=== PATIENT | male | born 1950 | race Caucasian/White ===

== ENCOUNTER 2019-11-17 10:29 | Day surgery (SDC) | payer MEDICARE ==
[~2019-11-17] VITALS: Ht 177.8 cm; Wt 100.3 kg
[2019-11-17] MEDS ORDERED: LACTATED RINGERS 1,000 ML IV STA (11:15)
[2019-11-17] MEDS ORDERED: CHLORHEXIDINE 15 ML UDC MM STA (11:15)
[2019-11-17 11:16] VITALS: BP 158/90
[2019-11-17] MEDS ORDERED: TAMS-11 PO (11:24)
[2019-11-17] MEDS ORDERED: LEVO150T PO (11:24)
[2019-11-17] MEDS ORDERED: ROSU10TA2 PO (11:24)
[2019-11-17] MEDS ORDERED: LOSA100T14 PO (11:24)
[2019-11-17] MEDS ORDERED: CHOL10003 PO (11:24)
[2019-11-17] MEDS ORDERED: CHLORHEXIDINE 15 ML UDC ONE (11:28)
[2019-11-17] MEDS ORDERED: DEXAMETHASONE 4 MG/ML, 1ML ONE (12:08)
[2019-11-17] MEDS ORDERED: LIDOCAINE-MPF 2% ,5ML ONE (12:08)
[2019-11-17] MEDS ORDERED: PROPOFOL 10 MG/ML, 20ML ONE (12:08)
[2019-11-17] MEDS ORDERED: GLYCOPYRROLATE 0.2MG/1ML, 5ML ONE (12:08)
[2019-11-17] MEDS ORDERED: ROCURONIUM 10MG/ML,5ML ONE (12:08)
[2019-11-17] MEDS ORDERED: MIDAZOLAM 1 MG/ML, 2ML ONE (12:08)
[2019-11-17] MEDS ORDERED: FENTANYL PF 100 MCG/2ML ONE (12:08)
[2019-11-17] MEDS ORDERED: EPHEDRINE 50 MG/ML, 1ML IVPush PRN (12:30)
[2019-11-17] MEDS ORDERED: ALBUTEROL/IPRATROPIUM 2.5MG/0.5MG, 3 ML NPPB PRN (12:30)
[2019-11-17] MEDS ORDERED: EPHEDRINE 50 MG/ML, 1ML IM PRN (12:30)
[2019-11-17] MEDS ORDERED: HYDROcodone/APAP 7.5-325MG/15ML UDC PO PRN (12:30)
[2019-11-17] MEDS ORDERED: MEPERIDINE/PF 25MG/0.5ML IVPush PRN (12:30)
[2019-11-17] MEDS ORDERED: GEMCITABINE HCL IS ONE (12:30)
[2019-11-17] MEDS ORDERED: hydrALAzine 20 MG/ML, 1ML IV PRN (12:30)
[2019-11-17] MEDS ORDERED: HYDROmorphone 1 MG/ML, 1ML INJ IVPush PRN (12:30)
[2019-11-17] MEDS ORDERED: OXYcodone 5 MG/5 ML ORAL.SOL UDC PO PRN (12:30)
[2019-11-17] MEDS ORDERED: ACETAMINOPHEN 325 MG TABLET PO PRN (12:30)
[2019-11-17] MEDS ORDERED: LORazepam 2 MG/ML, 1ML IVPush PRN (12:30)
[2019-11-17] MEDS ORDERED: MIDAZOLAM 1 MG/ML, 2ML IV PRN (12:30)
[2019-11-17] MEDS ORDERED: METHOCARBAMOL 1,000 MG in DEXTROSE 5% 100 ML IV PRN (12:30)
[2019-11-17] MEDS ORDERED: LABETALOL 5MG/ML, 20ML IV PRN (12:30)
[2019-11-17] MEDS ORDERED: METOCLOPRAMIDE 5 MG/ML, 2ML IVPush PRN (12:30)
[2019-11-17] MEDS ORDERED: DIPHENHYDRAMINE 50 MG/ML, 1ML IVPush PRN (12:30)
[2019-11-17] MEDS ORDERED: DIAZEPAM 5 MG/ML, 2ML IVPush PRN (12:30)
[2019-11-17] MEDS ORDERED: SODIUM CHLORIDE 0.9% IS ONE (12:30)
[2019-11-17] MEDS ORDERED: KETOROLAC 30 MG/1 ML IV PRN (12:30)
[2019-11-17] MEDS ORDERED: FENTANYL PF 100 MCG/2ML IV PRN (12:30)
[2019-11-17] MEDS ORDERED: ONDANSETRON 2MG/ML, 2ML IVPush PRN (12:30)
[2019-11-17] MEDS ORDERED: HALOPERIDOL 5 MG/ML IV PRN (12:30)
[2019-11-17] MEDS ORDERED: GENTAMICIN 80 MG/2 ML ONE (12:59)
[2019-11-17] MEDS ORDERED: LACTATED RINGERS 1,000 ML IV ONE (13:00)
== END 2019-11-17 17:20 | disposition home or self-care (01) ==
LOC: OUT 10:29
PROVIDERS: ATTEND Urology
DX: C67.9 Malignant neoplasm of bladder, unspecified (principal); Z11.59 Encounter for screening for other viral diseases; N40.1 Benign prostatic hyperplasia with lower urinary tract symptoms; N13.8 Other obstructive and reflux uropathy; I10 Essential (primary) hypertension; E03.9 Hypothyroidism, unspecified; Z79.02 Long term (current) use of antithrombotics/antiplatelets; Z79.890 Hormone replacement therapy; Z79.899 Other long term (current) drug therapy; Z87.442 Personal history of urinary calculi; Z88.0 Allergy status to penicillin; Z91.048 Other nonmedicinal substance allergy status; Z98.890 Other specified postprocedural states; Z82.49 Family history of ischemic heart disease and other diseases of the circulatory system; Z80.9 Family history of malignant neoplasm, unspecified
CPT/HCPCS: 36415; 52235; 87635; 88307; 93005; J1100; J1580; J2250; J2704; J3010; J7120; J9201

== ENCOUNTER 2020-09-11 14:57 | Day surgery (SDC) | payer MEDICARE ==
[~2020-09-11] VITALS: Ht 177.8 cm; Wt 98.6 kg
[~2020-09-11 14:57] MED LIST: CHOL10003 PO; LEVO150T PO; LOSA100T14 PO; ROSU10TA2 PO; TAMS-11 PO
[2020-09-11 15:21] VITALS: BP 158/95
[2020-09-11] MEDS ORDERED: CHLORHEXIDINE 15 ML UDC ONE (15:27)
[2020-09-11] MEDS ORDERED: CHLORHEXIDINE 15 ML UDC PO ONE (15:30)
[2020-09-11] MEDS ORDERED: LACTATED RINGERS 1,000 ML IV SCH (15:30)
[2020-09-11] MEDS ORDERED: OMNIPAQUE 350 MG/ML, 50 ML BOTTLE ONE (16:12)
[2020-09-11] MEDS ORDERED: ONDANSETRON 2MG/ML, 2ML ONE (16:26)
[2020-09-11] MEDS ORDERED: SUCCINYLCHOLINE 20 MG/ML, 10ML ONE (16:26)
[2020-09-11] MEDS ORDERED: ROCURONIUM 10 MG/ML,10ML ONE (16:26)
[2020-09-11] MEDS ORDERED: CEFAZOLIN 1,000 MG ONE (16:26)
[2020-09-11] MEDS ORDERED: DEXAMETHASONE 4 MG/ML, 1ML ONE (16:26)
[2020-09-11] MEDS ORDERED: PROPOFOL 10 MG/ML, 20ML ONE (16:26)
[2020-09-11] MEDS ORDERED: FENTANYL PF 250 MCG/5ML ONE (17:34)
[2020-09-11] MEDS ORDERED: hydrALAzine 20 MG/ML, 1ML IV PRN (18:00)
[2020-09-11] MEDS ORDERED: MEPERIDINE/PF 25MG/0.5ML IVPush PRN (18:00)
[2020-09-11] MEDS ORDERED: METHOCARBAMOL 1,000 MG in DEXTROSE 5% 100 ML IV PRN (18:00)
[2020-09-11] MEDS ORDERED: HYDROmorphone 1 MG/ML, 1ML INJ IVPush PRN (18:00)
[2020-09-11] MEDS ORDERED: LABETALOL 5MG/ML, 20ML IV PRN (18:00)
[2020-09-11] MEDS ORDERED: LORazepam 2 MG/ML, 1ML IVPush PRN (18:00)
[2020-09-11] MEDS ORDERED: ONDANSETRON 2MG/ML, 2ML IVPush PRN (18:00)
[2020-09-11] MEDS ORDERED: PROMETHAZINE 25 MG/ML, 1ML IVPush PRN (18:00)
[2020-09-11] MEDS ORDERED: EPHEDRINE 50 MG/ML, 1ML IVPush PRN (18:00)
[2020-09-11] MEDS ORDERED: ACETAMINOPHEN 325 MG TABLET PO PRN (18:00)
[2020-09-11] MEDS ORDERED: OXYcodone 5 MG/5 ML ORAL.SOL UDC PO PRN (18:00)
[2020-09-11] MEDS ORDERED: FENTANYL PF 100 MCG/2ML ONE (18:04)
[2020-09-11] MEDS ORDERED: OXYcodone 5 MG/5 ML ORAL.SOL UDC ONE (18:04)
[2020-09-11] MEDS: FENTANYL PF 100 MCG/2ML IV PRN ×2 (18:09→18:21)
[2020-09-11] MEDS ORDERED: hydrALAzine 20 MG/ML, 1ML ONE (18:21)
== END 2020-09-11 20:40 | disposition home or self-care (01) ==
LOC: OR 14:57
PROVIDERS: ATTEND Urology
DX: N13.2 Hydronephrosis with renal and ureteral calculous obstruction (principal); I10 Essential (primary) hypertension; Z20.822 Contact with and (suspected) exposure to COVID-19; Z79.899 Other long term (current) drug therapy; Z85.51 Personal history of malignant neoplasm of bladder; Z88.0 Allergy status to penicillin
CPT/HCPCS: 52353; 74420; 82360; 88300; 93005; C1726; C1758; C1769; J0330; J0690; J1100; J2405; J2704; J3010; J7120; Q9967; U0003; U0005